=== PATIENT | male | born 1985 | race African-American/Black ===

== ENCOUNTER 2018-12-25 12:14 | Emergency (ER) | payer SELFPAY ==
[~2018-12-25] VITALS: Ht 172.7 cm; Wt 96.2 kg
[2018-12-25] MEDS ORDERED: KETOROLAC TROMETH 60MG/2ML VIAL IM ONE (16:15)
[2018-12-25 17:12] VITALS: BP 141/87
== END 2018-12-25 17:26 | disposition home or self-care (01) ==
LOC: ER 12:14
DX: S93.402A Sprain of unspecified ligament of left ankle, initial encounter (principal); X50.0XXA Overexertion from strenuous movement or load, initial encounter; Y93.89 Activity, other specified; Y99.8 Other external cause status; Y92.89 Other specified places as the place of occurrence of the external cause
CPT/HCPCS: 73610; 73630; 96372; 99283; J1885

== ENCOUNTER 2019-08-08 14:07 | Emergency (ER) | payer BC, MEDICAID ==
[~2019-08-08] VITALS: Ht 172.7 cm; Wt 97.5 kg
[2019-08-08 16:22] VITALS: BP 132/82
== END 2019-08-08 16:28 | disposition home or self-care (01) ==
LOC: ER 14:07
DX: U07.1 COVID-19 (principal); J06.9 Acute upper respiratory infection, unspecified; F41.9 Anxiety disorder, unspecified
CPT/HCPCS: 71045; 87635

== ENCOUNTER 2020-07-25 00:53 | Emergency (ER) | payer MEDICAID ==
[~2020-07-25] VITALS: Ht 172.7 cm; Wt 99.8 kg
[2020-07-25] MEDS ORDERED: IBUPROFEN 800 MG TAB PO ONE (05:30)
[2020-07-25 05:38] VITALS: BP 142/82
== END 2020-07-25 06:00 | disposition home or self-care (01) ==
LOC: ER 00:53
DX: R68.84 Jaw pain (principal)
CPT/HCPCS: 70486